=== PATIENT | female | born 1980 | race Caucasian/White ===

== ENCOUNTER 2017-08-11 14:30 | Outpatient (CLI) | payer OTHER, SELFPAY ==
[2017-08-11 15:07] VITALS: BMI 30.4
[2017-08-11 15:32] LABS: ROM Internal Control Test YES-OK TO RESULT pt. (Internal QC)
[2017-08-11 15:33] LABS: ROM Patient Test Negative (Negative)
--- NOTE | 2017-08-12 17:22 | OB.TRI.NOTE ---
History of Present Illness Reason For Visit: R/O SROM History of Present Illness: Presented to L&D because she had leakage of fluid when bending over at home. Nothing in underwear or that continued. Advised to come in for evaluation. Denies any vaginal bleeding or contractions. Good movement. Home Medications Medication Instructions Recorded Vits [Prenatabs FA ] 1 tab PO DAILY 07/17/13 Allergies No Known Allergies Allergy (Verified 08/11/17 15:13) NST - FHR Rate Baby A Baseline: 140 Variability:: Moderate Accelerations:: 15 x 15 Decelerations:: None NST Reactive:: Yes FHR Category:: Category I Uterine Activity:: Irritability Impression/Plan A: Membranes intact P: ROM plus negative D/C home.
== END 2017-08-11 15:50 | disposition home or self-care (01) ==
LOC: WPOUT 14:43 → WP 14:44
PROVIDERS: Visit Provider Obstetrics & Gynecology
DX: Z34.90 Encounter for supervision of normal pregnancy, unspecified, unspecified trimester (principal); Z3A.00 Weeks of gestation of pregnancy not specified
CPT/HCPCS: 59025; 59050; 84112; 99218; G0378

== ENCOUNTER 2017-09-01 17:00 | Inpatient (IN) | payer BC, SELFPAY ==
[2017-09-01 17:28] VITALS: BMI 30.7
[2017-09-01] MEDS: Lactated Ringers 1,000 ML 50 ML IV ×2 (17:30→19:05)
[2017-09-01 17:48] LABS: Hematocrit 36.6 % (37-47); Hemoglobin 12.5 g/dl (12.0-15.0); Mean Corp Hgb Conc 34.2 g/gl (32-36); Mean Corpuscular Hgb 31.5 pg (27.0-32.0); Mean Corpuscular Volume 92.2 fL (81-99); Mean Platelet Vol. 9.9 fl (6.2-12.0); Platelet Count 237 K/mm3 (150-450); RBC Distribution Width CV 12.6 % (11.6-14.6); RBC Distribution Width SD 42.6 fl (35.1-43.9); Red Blood Count 3.97 M/mm3 (4.2-5.4); White Blood Count 6.1 K/mm3 (4.4-11.0)
[2017-09-01 17:51] LABS: Scan Indicated on CBC? Y/N NO
--- NOTE | 2017-09-01 19:04 | PCM.HP.OB ---
History Date of Admission: 09/01/17 Final PRUDENCE: 09/11/17 Final PRUDENCE Source: US <20 weeks Gestational age: 38 Weeks and 4 Days History of this : 37-year-old 3 para 2 female who presents at 38-2/7 weeks gestation with EDC of 09/11/2017 by last menstrual period confirmed by first trimester ultrasound presents in labor. She had spontaneous rupture of membranes proximally 3 AM this morning. Continued to have small amounts of clear fluid throughout the day. She has had some mild contractions. They have began to get more intense when she arrived here. She denies gross vaginal bleeding and she has had good movement. Regnancy has been uncomplicated to date other than advanced maternal age. Pertinent Past Medical History: Vulvar dysplasia History of anxiety Street abnormal Pap smear History of hemorrhage Past surgical history: Tonsillectomy Laser of vulvar dysplasia Allergies No Known Allergies Allergy (Verified 08/11/17 15:13) Current Medications Acetaminophen (Tylenol) 325 - 650 mg PO Q4H PRN PRN PRN Reason: PAIN OR FEVER >100.4F Al Hydroxide/Mg Hydroxide (Mylanta Ii) 15 - 30 ml PO Q4H PRN PRN PRN Reason: INDIGESTION Citric Acid/Sodium Citrate (Bicitra) 30 ml PO UD PRN Lactated Ringer's () 1,000 mls @ 50 mls/hr IV .Q20H AIDAN Nalbuphine HCl (Nubain) 5 - 10 mg IV Q3H PRN PRN PRN Reason: PAIN (4-10/10) Ondansetron HCl (Zofran) 4 mg IV Q8H PRN PRN PRN Reason: NAUSEA Promethazine HCl (Phenergan (Ll)) 6.25 - 12.5 mg IV Q4H PRN PRN; Protocol PRN Reason: IF NAUSEA PERSISTS Sodium Chloride () 5 - 15 ml IV UD AIDAN Smoking Status: Former smoker Alcohol: None Drug Use: none Number of Fetus(es): 1 Review of Systems Constitutional: Denies: Anorexia, Chills, Fever HEENT: Reports: Ear Pain, Eye Pain Cardiovascular: Denies: Chest Pain Respiratory: Reports: Cough. Denies: Shortness of Breath Gastrointestinal: Denies: Constipation Genitourinary: Denies: Dysuria Skin: Denies: Rash Physical Exam General: Alert, Cooperative, No apparent distress Cardiovascular: Regular rate Lungs: Normal air movement Abdomen: Soft, Non Tender, Non-Distended, Gravid, Appropriate for Gestational Age Estimated gestational size: Appropriate for gestational size Presentation: Cephalic Cervix Dilation (cm): 4 Station: -2 Effacement (%): 70 Assessment/Plan 37-year-old 3 para 2 female at term with spontaneous rupture of membranes Estimated weight is less than 4500 g pelvis is clinically adequate vaginal delivery Epidural if desires Group B strep is negative
[2017-09-01] MEDS: Oxytocin 30 units/NS 500 ml 30 UNITS/500 ML IV.SOLN IV (20:00)
[2017-09-01] MEDS: Oxytocin 30 units/NS 500 ml 30 UNITS/500 ML IV.SOLN 334 UNITS IV (21:20)
--- NOTE | 2017-09-01 21:23 | PCM.OB.VAG ---
Vaginal Delivery Maternal Presentation: Active Labor Amniotic Membrane Rupture Type: Spontaneous at home Amniotic Fluid Description: Clear Final PRUDENCE: 09/11/17 Final PRUDENCE Source: US <20 weeks Gestational age: 38 Weeks and 4 Days Date of Procedure: 09/01/17 Pre-Operative Diagnosis: Spontaneous labor Post-Operative Diagnosis: Labor Surgery/ Procedure Performed: Spontaneous Vaginal Delivery Type of Anesthesia: None Description of Procedure: A vigorous [female] was delivered [SUSANNAH] over intact perineum. The remainder the infant was delivered with maternal pushing and gentle traction only in less than 15 seconds. The Pitocin infusion was initiated for active management of the third stage. The cord was clamped and cut [after 1 minute]. The was attended to by the waiting nursing staff. The placenta was delivered spontaneously and intact. The cervix and vagina were intact. Sponge and needle counts were correct. A vaginal sweep was completed by me. Presentation: SUSANNAH Placental Delivery Description: Spontaneous Placenta Disposition: [facility] Cord Vessel Description: 3 Vessels Cord Entanglement: None Drain: Cu[place] to straight drain - Moved immediately before delivery Estimated Blood Loss: 300 cc Infant A gender: Female (1 minute): 8 (5 minute): 9 Episiotomy Description: None Laceration: None Medications given after delivery: IV Pitocin Complications: None
[2017-09-01] MEDS: Oxytocin 30 units/NS 500 ml 30 UNITS/500 ML IV.SOLN 167 UNITS IV (21:50)
[2017-09-01 23:45] VITALS: BP 111/64; PULSE 72; RESP 18; TEMP 37.3; O2SAT 98
[2017-09-02] MEDS: Naproxen 250 MG Tablet PO ×3 (00:55→16:51)
[2017-09-02 04:17] VITALS: BP 92/55; PULSE 62; RESP 18; TEMP 36; O2SAT 96
[2017-09-02 09:00] VITALS: BP 107/57; PULSE 65; RESP 18; TEMP 36.6
[2017-09-02] MEDS: Senna/Docusate Sodium 1 Tablet PO (09:00)
--- NOTE | 2017-09-02 10:41 | PCM.PN.OB ---
Subjective: pain well controlled, average lochia - Physical Exam General: Alert, Cooperative, No apparent distress Vital Signs Temp Pulse Resp BP Pulse Ox 97.9 F 65 18 107/57 L 96 09/02/17 09:00 09/02/17 09:00 09/02/17 09:00 09/02/17 09:00 09/02/17 04:17 Oxygen Delivery Method Room Air Weight: 88.961 kg Body Mass Index (BMI) 30.7 Intake and Output for Last 24 Hours 08/31/17 09/01/17 09/02/17 23:59 23:59 23:59 Output Total 100 / 100 800 / 800 Balance -100 / -100 -800 / -800 Laboratory Tests Past 24 Hrs 09/01/17 09/01/17 17:30 17:30 WBC 6.1 RBC 3.97 L Hgb 12.5 Hct 36.6 L MCV 92.2 MCH 31.5 MCHC 34.2 RDW 12.6 RDW Differential 42.6 Plt Count 237 MPV 9.9 Blood Type O POSITIVE Antibody Screen NEGATIVE Assessment/Plan PPD#1 doing well routine care
--- NOTE | 2017-09-02 10:45 | DCINST_ITS ---
Discharge Diet: No Restrictions Discharge Activity: Return to Normal Activity, May not drive while taking narcotic pain medications., May Shower May resume sexual activity in: 4-6 weeks Additional Activity Instructions:: Nothing in the vagina for 4-6 weeks. You may return to work/school in 6 weeks. Call your doctor if your incision/area has: Continuous Slow Oozing, Sudden Increased Bleeding, Increased Pain/ Swelling, Increased Redness, Foul Smelling Discharge Additional Instructions: If you experience any of the following, contact your healthcare provider. * Bleeding that soaks a pad every hour for 2 hours * Fever 100.4 or higher * Unrelieved incision or abdominal pain * Swelling, redness, discharge or bleeding from your incision or episiotomy site * Your incision begins to separate * Problems urinating (including inability to urinate or burning while urinating) . * Visual changes * Severe headache * Flu-like symptoms * Pain or redness in one of both of your breasts * Pain, warmth, tenderness or swelling in your legs, especially the calf area * Frequent nausea and vomiting * Symptoms of depression or anxiety If you experience any of the following, call 911 or go to the nearest Emergency Room. * Chest pain * Problems breathing * Seizure activity * Partial or complete paralysis of a body part, slurred speech, weakness or drooping of the face, or a sudden inability to walk or hold your balance Allergies/Adverse Reactions: Allergies No Known Allergies Allergy (Verified 08/11/17 15:13) Medications to take at Discharge Vits [Prenatabs FA ] 1 tab PO DAILY 07/17/13 Acetaminophen [Tylenol] 650 mg PO PRN PRN 09/01/17 Amoxicillin 875 mg PO BID 09/01/17 Amoxicillin 875 mg PO BID tablet 09/02/17 Ibuprofen [Motrin] 600 mg PO Q6H PRN #60 tab 09/02/17 The following prescriptions were given: Ibuprofen [Motrin] 600 mg PO Q6H PRN #60 tab PRN Reason: Pain Please Follow Up With: Donna Loomis MD - [phone] When: Call to make an appointment with your doctor's office in 6 weeks or as needed
[2017-09-02 12:00] VITALS: BP 111/61; PULSE 70; RESP 18; TEMP 36.1
[2017-09-02 16:53] VITALS: BP 103/56; PULSE 56; RESP 18; TEMP 36.2
[2017-09-02 20:05] VITALS: BP 102/65; PULSE 57; RESP 16; TEMP 36
[2017-09-03 02:20] VITALS: BP 106/65; PULSE 57; RESP 16; TEMP 36
[2017-09-03] MEDS: Naproxen 250 MG Tablet PO ×2 (02:21→10:35)
[2017-09-03 08:28] VITALS: BP 120/84; PULSE 86; RESP 16; TEMP 36.2
--- NOTE | 2017-09-03 09:18 | PCM.PN.OB ---
Subjective: pain well controlled, average lochia. no N/v - Physical Exam General: Alert, Cooperative, No apparent distress Vital Signs Temp Pulse Resp BP Pulse Ox 97.2 F L 86 16 120/84 H 96 09/03/17 08:28 09/03/17 08:28 09/03/17 08:28 09/03/17 08:28 09/02/17 04:17 Oxygen Delivery Method Room Air Weight: 88.961 kg Body Mass Index (BMI) 30.7 Intake and Output for Last 24 Hours 09/01/17 09/02/17 09/03/17 23:59 23:59 23:59 Output Total 100 / 100 800 / 800 Balance -100 / -100 -800 / -800 Assessment/Plan PPD#2 ready for d/c infant
== END 2017-09-03 12:20 | disposition home or self-care (01) | DRG 775 ==
PROVIDERS: Admitting Provider Obstetrics & Gynecology; Visit Provider Obstetrics & Gynecology
DX: O80 Encounter for full-term uncomplicated delivery (principal); Z87.891 Personal history of nicotine dependence; Z79.899 Other long term (current) drug therapy; Z3A.38 38 weeks gestation of pregnancy; Z37.0 Single live birth
CPT/HCPCS: 59025; 59050; 85027; 86850; 86900; 99218; J7120; G0378

== ENCOUNTER 2018-10-26 13:04 | Emergency (ER) | payer BC, SELFPAY ==
[2018-10-26 13:06] VITALS: BP 123/69; PULSE 95; RESP 15; TEMP 37.6; O2SAT 97; BMI 28.0
--- NOTE | 2018-10-26 13:20 | RAD_ITS ---
STUDY: X-RAY CHEST REASON FOR EXAM: Female, 38 years old. Fever and joint pain for one week TECHNIQUE: PA and lateral views of the chest. COMPARISON: None. FINDINGS: The lungs are clear and expanded. There is no demonstrated pleural abnormality. Normal size heart. Normal mediastinum and aneta. Normal visualized pulmonary arteries. Normal visualized aortic arch and descending thoracic aorta. Normal visualized thoracic spine. Normal visualized ribs, clavicles, and shoulders. There is no demonstrated abnormality of the visualized soft tissue structures of the upper abdomen. RAD/Chest PA and Lateral IMPRESSION: Normal x-ray examination of the chest. Electronically Signed: Chas Leavitt MD at 14:37 EDT , Service support ,
[2018-10-26 14:11] LABS: Absolute Lymphocyte Count 1.89 X10^3/ul (0.83-4.51); Absolute Neutrophil Count 5.4 X10^3/uL (2.0-7.7); Basophil# 0.05 X10^3/uL; Basophil% 0.6 % (0-1); Eosinophil# 0.42 X10^3/uL; Eosinophils% 5.2 % (0-5); Hematocrit 38.6 % (37-47); Hemoglobin 13.1 g/dl (12.0-15.0); Lymphocyte # 1.89 X10^3/ul (4.0); Lymphocyte % 23.5 % (19-41); Mean Corp Hgb Conc 33.9 g/gl (32-36); Mean Corpuscular Hgb 30.6 pg (27.0-32.0); Mean Corpuscular Volume 90.2 fL (81-99); Mean Platelet Vol. 9.5 fl (6.2-12.0); Monocyte# 0.28 X10^3/uL; Monocyte% 3.5 % (0-10); Neutrophil # 5.39 X10^3/uL (2.7-7.7); Neutrophil % 67.1 % (47-70); Platelet Count 249 K/mm3 (150-450); RBC Distribution Width CV 12.8 % (11.6-14.6); RBC Distribution Width SD 41.8 fl (35.1-43.9); Red Blood Count 4.28 M/mm3 (4.2-5.4)
[2018-10-26 14:12] LABS: POSITIVE COUNT NO; POSITIVE DIFFERENTIAL NO; POSITIVE MORPHOLOGY NO
[2018-10-26 14:16] LABS: Erythrocyte Sedimentation Rate 24 mm/hr (0-20)
[2018-10-26 14:27] LABS: ALB/GLOB Ratio 0.9 RATIO (0.9-2.4); AST(SGOT) 14 U/L (15-37); Alanine Aminotransfer ALT/SGPT 22 U/L (13-56); Albumin, Serum 3.7 g/dL (3.2-5.0); Alkaline Phosphatase 66 U/L (45-117); Anion Gap 6 (5-15); BUN 10 mg/dL (7-18); BUN/Creat Ratio 16.3 RATIO (10-20); Calcium,Total 8.8 mg/dL (8.5-10.1); Chloride 108 mmol/L (98-107); Creatinine, Serum 0.61 mg/dL (0.55-1.02); EST Glomerular Filtration Rate 117 mL/min (>60); Est Glom Filt Rate - Afr Amer 142 mL/min (>60); Estimated Creatinine Clearance 123.99 ml/min; Globulin 4.1 g/dL (2.2-4.2); Glucose 88 mg/dL (74-106); Protein, Total 7.8 g/dL (6.4-8.2); Sodium Level 138 mmol/L (136-145)
[2018-10-26 16:59] LABS: Color, Urine Yellow (Yellow); Glucose, Dipstick Normal (Normal); Leukocyte Esterase-Dipstick Negative /ul (Negative); Nitrite-Dipstick Negative (Negative); Occult Blood-Urine 25 /ul (Negative); Protein-Dipstick Negative (Negative); Urine Bilirubin Dipstick Negative (Negative); Urine Clarity Clear (Clear); Urine Urobilinogen Normal (Normal)
[2018-10-26 17:03] LABS: Ketone-Dipstick 150 mg/dl (Negative)
[2018-10-26 17:05] LABS: Bacteria RARE /hpf (None Seen); Mucous, Urine 1+ /hpf (<or=2+); Red Blood Cells-Urine 0-5 SEEN /hpf (0-5); Squamous Epithelial Cells - UA 0-5 SEEN /hpf (5-10); White Blood Cells 0-5 SEEN /hpf (0-5)
--- NOTE | 2018-10-26 18:01 | ED.VIS.GEN ---
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 Denies: Chills, Subjective, Sweats Eyes: Denies: Visual changes - bilaterally, Blurred Vision - bilaterally, Diplopia ENT: Denies: Rhinorrhea, Sore throat Cardiovascular: Denies: Chest pain, Palpitations Respiratory: Denies: Dyspnea, Cough, Dyspnea on exertion Gastrointestinal: Denies: Abdominal pain, Nausea, Vomiting, Diarrhea, Melena, Hematochezia Genitourinary: Denies: Dysuria, Hematuria, Frequency Musculoskeletal: Reports: Myalgias, Arthralgias - She reports joint swelling multiple MCP joints bilaterally. Denies: Neck pain, Back pain, Swelling, Extremity Pain Skin: Denies: Rash, Wounds Neurological: Denies: Headache, Weakness, Numbness Endocrine: Denies: Polyuria, Polydipsia Hematologic: Denies: Easy bruising, Easy bleeding Allergy: Denies: Uticaria, Swelling of the mouth Physical Exam General: Well nourished, Well developed, No Acute Distress Head: Normocephalic, Atraumatic Eyes: Perrl, EOMI ENT: Moist mucous membranes, No rhinorrhea Neck: Supple, Nontender Cardiovascular: Regular rate, Regular rhythm, No murmurs Respiratory: No distress, CTA bilaterally, Chest nontender Abdomen: Soft, Nontender, Nondistended, Normal bowel sounds Back: Nontender, Normal Inspection Extremities: Nontender, No edema, - - Tenderness of multiple MCP joints bilaterally with bogginess. Skin: Normal color, No rash - Patient has blanching erythematous rash noted predominantly extremities, Rash Neurological: Alert, Oriented x3, Cranial nerves II-XII grossly intact, Normal Strength, Normal Sensation Psychological: Normal affect, Normal Mood Diagnostic/Tx/Re-eval Impressions Chest X-Ray 10/26/18 13:20 IMPRESSION: Normal x-ray examination of the chest. Electronically Signed: Chas Leavitt MD at 14:37 EDT , Service support , 10/26/18 13:20 Chest PA and Lateral [RAD] Stat Laboratory Results 10/26/18 10/26/18 10/26/18 13:50 13:50 16:45 WBC 8.0 RBC 4.28 Hgb 13.1 Hct 38.6 MCV 90.2 MCH 30.6 MCHC 33.9 RDW 12.8 RDW Differential 41.8 Plt Count 249 MPV 9.5 Immature Gran % (Auto) 0.100 Neut % (Auto) 67.1 Lymph % (Auto) 23.5 [place] % (Auto) 3.5 Eos % (Auto) 5.2 H Baso % (Auto) 0.6 Absolute Neuts (auto) 5.4 Absolute Lymphs (auto) 1.89 Total Counted Not Reportable ESR 24 H Sodium 138 Potassium 4.0 Chloride 108 H Carbon Dioxide 24.0 Anion Gap 6 BUN 10 Creatinine 0.61 Estim Creat Clear Calc 123.99 Est GFR (MDRD) Af Amer 142 Est GFR (MDRD) Non-Af 117 BUN/Creatinine Ratio 16.3 Glucose 88 Calcium 8.8 Total Bilirubin 0.40 AST 14 L ALT 22 Alkaline Phosphatase 66 C-React Prot Ext Range 70.90 H Total Protein 7.8 Albumin 3.7 Globulin 4.1 Albumin/Globulin Ratio 0.9 Urine Color Yellow Urine Clarity Clear Urine pH 5.0 Ur Specific [place] 1.020 Urine Protein Negative Urine Glucose (UA) Normal Urine Ketones 150 H Urine Occult Blood 25 H Urine Nitrite Negative Urine Bilirubin Negative Urine Urobilinogen Normal Ur Leukocyte Esterase Negative Urine RBC 0-5 SEEN Urine WBC 0-5 SEEN Ur Squamous Epith Cells 0-5 SEEN Urine Bacteria RARE Urine Mucus 1+ - Medical Decision Making With low-grade myalgias, arthralgias, joint swelling and rash concern for rheumatologic disorder. Baseline blood work was ordered. ESR and CRP are elevated. Discussed case with her unit aide Dr. Jose M Johnson. She asked for patient to call office Sunday and will put in referral for cool roofing installer ED Disposition - Plan for ED Patient: Disposition: Home or Assisted Living Diagnosis: Polyarthritis of hand, Rash and nonspecific skin eruption, Fever, unknown origin Instructions: ED Fever Unconf Cause Referrals: Augusto Luna MD [Primary Care Provider] - Additional Instructions: Call Dr. Castle's office on Sunday and revenue cycle administrator will make referral to cool roofing installer for you
[2018-10-26 18:23] VITALS: BP 116/63; PULSE 78; RESP 16
--- NOTE | 2018-10-26 18:23 | ED.RN ---
IV DC'ED, CATHETER INTACT, SMALL GAUZE DRESSING PLACED. DISCHARGE INSTRUCTIONS GIVEN TO AND REVIEWED WITH PATIENT, PATIENT DENIES QUESTIONS OR CONCERNS AND VOICES UNDERSTANDING OF DISCHARGE INSTRUCTIONS. PT AMBULATES OUT OF ROOM WITHOUT DIFFICULTY.
== END 2018-10-26 18:24 | disposition home or self-care (01) ==
PROVIDERS: Emergency Provider Emergency Medicine; Family Provider Family Medicine; PCP Family Medicine
DX: M19.049 Primary osteoarthritis, unspecified hand (principal); R21 Rash and other nonspecific skin eruption; R50.9 Fever, unspecified
CPT/HCPCS: 71046; 80053; 81001; 85025; 85652; 86140; 87040; 99284

== ENCOUNTER 2020-07-01 07:52 | Day surgery (SDC) | payer OTHER, SELFPAY ==
--- NOTE | 2020-06-25 16:37 | PCM.HP.BLA ---
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 HPI: The patient is a 40 year old female presenting for pre-operative visit. She is scheduled for wide local excision of vulvar lesions , for VIN2-3 on 07/01/20. Procedure discussed along with risks, benefits and complications. Other alternatives discussed for management. Consent form signed? Yes. ? ? PAST MEDICAL HISTORY PAST MEDICAL HISTORY Diagnosis Date ? Abnormal glandular Papanicolaou smear of cervix ? ? Abn. Pap smear (cervix) ? Anxiety ? ? hemorrhage ? ? ? PAST SURGICAL HISTORY PAST SURGICAL HISTORY Procedure Laterality Date ? COLPOSCOPY (VAGINOSCOPY) ? ? ? Colposcopy ? PAST SURGICAL HISTORY OF ? 02/17/2016 ? Removal of tissues ? PRK Left 05-05-2016 ? REMOVE TONSILS/ADENOIDS,12+ Y/O ? CURRENT MEDICATIONS Current Outpatient Medications Medication Sig Dispense Refill ? imiquimod (ALDARA) 5 % cream Apply 1 Packet to affected area three times a week. 12 Each 4 ? Drospirenone-Ethinyl Estradiol (ISIDORO, 28,) 3-0.03 mg per tablet Take 1 tablet by mouth once daily. 3 Package 3 ? Gvphlngn-Dv-Eor-Fe-FA ( VITAMIN) tab Take 1 tablet by mouth. ? ? ? lidocaine 4 % gel Apply to affected area three times daily as needed for up to 7 days. 30 g 0 ? ibuprofen (MOTRIN) 600 mg tablet Take 1 tablet by mouth every 6 hours as needed. 30 tablet 1 ? oxyCODONE-acetaminophen (PERCOCET) 5-325 mg tablet Take 1 tablet by mouth every 6 hours as needed for Pain for up to 3 days. FOR PAIN. 5 tablet 0 ? No current facility-administered medications for this visit. ? ? ALLERGIES: Lo-Ovral (21) [Norgestrel-Ethinyl Estradiol] ? PERSONAL HISTORY: SOCIAL HISTORY Social History ? Tobacco Use ? Smoking status: Former Smoker ? ? Years: 5.00 ? ? Quit date: 07/16/2002 ? ? Years since quittin.9 ? Smokeless tobacco: Never Used Substance Use Topics ? Alcohol use: No ? Drug use: No ? FAMILY HISTORY: FAMILY HISTORY FAMILY HISTORY Problem Relation Age of Onset ? Cancer Father ? ? lung ? Cancer Paternal Grandmother ? ? oral cancer ? other (Dementia) Paternal Grandmother ? ? Diabetes Paternal Grandfather ? ? Heart Paternal Grandfather ? ? ? REVIEW OF SYMPTOMS: negative except as noted above PHYSICAL EXAMINATION: ? VITALS: Blood pressure 112/70, weight 172 lb (78 kg), last menstrual period 06/21/2020. ? GENERAL: The patient is well nourished, well hydrated in no acute distress. , The patient is oriented to time, place, and person. NECK: full range of motion ? 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 PLAN: Wide local excision of vulvar lesions- ? Discussed acetic acid use during case to help visualize lesions. Will send each lesion individually and create diagram so we ensure we know which lesions are VIN2-3. Consider imiqumoid after if indicated. Reviewed margins with patient. ? Pt has been counseled on risks/benefits and alternatives of surgery including but not limited to anesthesia, bleeding, infection. Pt wishes to proceed with surgery at this time. ? Post op meds given ? ? I have reviewed and updated past medical and surgical history, medications and allergies Gely Castle MD
[2020-07-01] VITALS (8 sets, daily range): BP systolic 98–116; BP diastolic 51–82; PULSE 63–90; RESP 16–18; TEMP 36.2–36.9; O2SAT 96–100; BMI 26.9
--- NOTE | 2020-07-01 | IMM_PTH ---
PATIENT: RONA MONTES [place] [facility] [place][id number] AGE/SX: 40/F ROOM: RE07/01/[address]: Dr. Gely Gross, MDDOB: 1980 BED: DIS: 07/01/2020 SPEC #: [id number] RECD: 07/05/20 12:51 STATUS: BORIS REQ #: [id number] THOR: 07/01/20 00:[address]: Gely Gross DEPT: IMMUNOHISTOCHEMISTRY RECD BY: Viktoria Chino ENTERED: 07/05/20 12:53 SP TYPE: IMMUNO OTHR DR: Dr. Augusto Luna MD Tissues: E - Skin of vulva F - Skin of vulva H - Skin of vulva Procedures: p16 (initial) KI-67 (add) PHYSICIAN & INSTITUTION [place] [id number] SPECIMEN INFORMATION: Tissue Source: A - Vulvar lesion #1, B - Vulvar lesion #2, C - Vulvar lesion #3, D - Vulvar lesion #5, E - Vulvar lesion #6, F - Vulvar lesion #7, G - Vulvar lesion #9, H - Vulvar lesion #10, I - Vulvar lesion #11, J - Vulvar lesion #12 Clinical Info: Vulvar lesions Specimen Number: [id number] A-[id number] CPT code: 45311 x10, 02033 x10 METHODOLOGY: Deparaffinized sections of prefer/formalin-fixed tissue or PAP/DQ stained slides are incubated with monoclonal/polyclonal antibodies/oligonucleotide probes. Localization is made via biotin free immunoperoxidase method. Appropriate controls are performed and reacted as expected. Results on target cell population are indicated in the following table: RESULTS: ANTIBODY / CLONE RESULT Block A P16 (E6H4) negative Ki-67 (30-9) negative Block B P16 (E6H4) negative Ki-67 (30-9) positive, low Block C P16 (E6H4) negative Ki-67 (30-9) positive, low Block D P16 (E6H4) negative Ki-67 (30-9) negative, low Block E P16 (E6H4) positive, block staining Ki-67 (30-9) positive, high Block F P16 (E6H4) positive, focal and patchy Ki-67 (30-9) positive, low Block G P16 (E6H4) negative Ki-67 (30-9) negative Block H P16 (E6H4) positive, focal block staining Ki-67 (30-9) positive, moderate Block I P16 (E6H4) negative Ki-67 (30-9) negative Block J P16 (E6H4) negative Ki-67 (30-9) negative These tests were developed and their performance characteristics determined by [facility]. They may not have been cleared or approved by the U.S. Food and Drug Administration. The FDA has determined that such clearance or approval is not necessary. The above immunohistochemical/dualISH markers are ordered and reviewed by the Pathologist. INTERPRETATION: A. Vulvar lesion #1, biopsy: Negative for dysplasia. B. Vulvar lesion #2, biopsy: Negative for dysplasia. C. Vulvar lesion #3, biopsy: Negative for dysplasia. D. Vulvar lesion #5, biopsy: Negative for dysplasia. E. 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 F. Vulvar lesion #7, biopsy: Focal mild Squamous dysplasia (ANA I). G. Vulvar lesion #9, biopsy: Negative for dysplasia. H. Vulvar lesion #10, biopsy: Focal moderate Squamous dysplasia (ANA II). I. Vulvar lesion #11, biopsy: Negative for dysplasia. J. Vulvar lesion #12, biopsy: Negative for dysplasia. SJ:chema 07/07/20
[2020-07-01 08:23] LABS: Internal QC Validated? YES +Cl - CLEAR BKGD
[2020-07-01 08:27] LABS: Pregnancy, Urine Negative Negative
[2020-07-01 08:27] LABS: Hematocrit 38.5 % (37-47); Hemoglobin 13.1 g/dL (12.0-15.0); Mean Corpuscular Hgb 31.4 pg (27.0-32.0); Mean Corpuscular Volume 92.3 fL (81-99); Platelet Count 321 K/mm3 (150-450); RBC Distribution Width CV 12.5 % (11.6-14.6); RBC Distribution Width SD 42.4 fl (35.1-43.9); Red Blood Count 4.17 M/mm3 (4.2-5.4); White Blood Count 5.6 K/mm3 (4.4-11.0)
[2020-07-01] MEDS: 0.9% Normal Saline 1,000 ML 150 ML IV (08:34)
--- NOTE | 2020-07-01 09:30 | VUL_PTH ---
PATIENT: RONA MONTES [place] [facility] [place] U[place][id number] AGE/SX: 40/F ROOM: RE07/01/[address]: Dr. Gely Gross, MDDOB: 1980 BED: DIS: 07/01/2020 SPEC #: [id number] RECD: 07/01/20 13:34 STATUS: BORIS ORIANA #: [id number] THOR: 07/01/20 09:[address]: Gely Gross DEPT: SURGICAL PATHOLOGY RECD BY: Ashley Rothman ENTERED: 07/02/20 08:16 SP TYPE: VULVA BX OTHR DR: Dr. Augusto Luna MD Tissues: A - Vulva, NOS B - Vulva, NOS C - Vulva, NOS D - Vulva, NOS E - Vulva, NOS F - Vulva, NOS G - Vulva, NOS H - Vulva, NOS I - Vulva, NOS J - Vulva, NOS Procedures: Surgery Specimen Level IV HEADER OPERATION: Wide local excision, vulvar lesion PRE-OP DIAGNOSIS: Vulvar lesions TISSUE SUBMITTED: A - Vulvar lesion #1, B - Vulvar lesion #2, C - Vulvar lesion #3, D - Vulvar lesion #5, E - Vulvar lesion #6, F - Vulvar lesion #7, G - Vulvar lesion #9, H - Vulvar lesion #10, I - Vulvar lesion #11, J - Vulvar lesion #12 MICROSCOPIC DIAGNOSIS A. Vulvar lesion #1, biopsy: Consistent with squamous papilloma. Negative for dysplasia. See comment. B. Vulvar lesion #2, biopsy: Consistent with squamous papilloma. Negative for dysplasia. See comment. C. Vulvar lesion #3, biopsy: Consistent with squamous papilloma. Negative for dysplasia. See comment. D. Vulvar lesion #5, biopsy: A fragment of squamous mucosa with focal hyperkeratosis. Negative for dysplasia. See comment. E. 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 Resection margins are free of dysplastic changes. See comment. F. Vulvar lesion #7, biopsy: Focal mild squamous dysplasia (ANA I). Focal hyperkeratosis. Resection margins are free of dysplastic changes. See comment. G. Vulvar lesion #9, biopsy: Squamous papilloma with focal hyperkeratosis. Negative for dysplasia. See comment. H. Vulvar lesion #10, biopsy: Focal moderate squamous dysplasia (ANA II). Acanthosis and hyperkeratosis. Resection margins are free of dysplastic changes. See comment. I. Vulvar lesion #11, biopsy: Focal acanthosis and hyperkeratosis. Negative for dysplasia. See comment. J. Vulvar lesion #12, biopsy: Focal acanthosis. Negative for dysplasia. See comment. NEHEMIAS:chema 07/07/20 COMMENT A-C & G. The lesion may represent condyloma. A to J. Immunohistochemistry ([id number]) for surrogate HPV marker (p16) supports the above diagnosis. MICROSCOPIC DESCRIPTION Slides are reviewed. GROSS DESCRIPTION A - Received in fixative is one container labeled with the patient's name and designated vulvar lesion #1. The specimen consists of one irregular fragment of light currie soft tissue that measures 0.5 x 0.5 x 0.1 cm. The specimen is totally submitted in one cassette. B - Received in fixative is one container labeled with the patient's name and designated vulvar lesion #2. The specimen consists of one irregular fragment of light currie soft tissue that measures 0.6 x 0.5 x 0.21 cm. The specimen is inked, bisected and totally submitted in one cassette. C - Received in fixative is one container labeled with the patient's name and designated vulvar lesion #3. The specimen consists of one irregular fragment of light currie soft tissue that measures 0.8 x 0.5 x 0.2 cm. The specimen is inked, bisected and totally submitted in one cassette. D - Received in fixative is one container labeled with the patient's name and designated vulvar lesion #5. The specimen consists of one irregular fragment of light currie soft tissue that measures 0.6 x 0.5 x 0.2 cm. The specimen is inked, bisected and totally submitted in one cassette. E - Received in fixative is one container labeled with the patient's name and designated vulvar lesion #6. The specimen consists of one irregular fragment of light currie soft tissue that measures 3.2 x 1.6 x 0.2 cm. The specimen is inked, serially sectioned and totally submitted in one cassette. F - Received in fixative is one container labeled with the patient's name and designated vulvar lesion #7. The specimen consists of two irregular fragments of light currie soft tissue that in aggregate measure 1.5 x 0.6 x 0.2 cm. The specimen is inked, sectioned and totally submitted in one cassette. G - Received in fixative is one container labeled with the patient's name and designated vulvar lesion #9. The specimen consists of one irregular fragment of light currie soft tissue that measures 2.5 x 1.6 x 0.2 cm. The specimen is inked, serially sectioned and totally submitted in one cassette. H - Received in fixative is one container labeled with the patient's name and designated vulvar lesion #10. The specimen consists of one irregular fragment of light currie soft tissue that measures 0.5 x 0.2 x 0.1 cm. The specimen is inked, serially sectioned and totally submitted in one cassette. I - Received in fixative is one container labeled with the patient's name and designated vulvar lesion #11. The specimen consists of one irregular fragment of light currie soft tissue that measures 2 x 0.2 x 0.1 cm. The specimen is bisected and totally submitted in one cassette. J - Received in fixative is one container labeled with the patient's name and designated vulvar lesion #12. The specimen consists of one irregular fragment of light currie soft tissue that measures 1 x 0.3 x 0.1 cm. The specimen is inked, bisected and totally submitted in one cassette. / AM:chema 07/02/20 TC:5 CPT: 57166 x10
[2020-07-01] MEDS: ACETIC ACID 1,000 ML IRRIG.SOLN 1000 ML IR (10:54)
[2020-07-01] MEDS: Lidocaine 1%/Epi 1:200 (30ml) 30 ML AMPUL (10:54)
--- NOTE | 2020-07-01 11:36 | PCM.OPRPT ---
Report of Operation Date of Procedure: 07/01/20 Pre-Operative Diagnosis: ANA 2-3 Post-Operative Diagnosis: same Surgery/Procedure Performed:: Wide local Exicison of mulitple vulvar lesions Description of Surgical Findings:: Multiple Hyperpigmented small lesion on MONS, perineum, labia majora and in previous resection sites Type of Anesthesia:: Local, MAC Special Medications: 1% Lidocaine with EPINEPHRINE Specimen's removed: Mulitple Vulvar lesions- (10 total specimens) Drains: none Estimated Blood Loss (mL): 15 Fluids Replaced: 1400 Description of Procedure: She was taken to the operating room she was even anesthesia and then she was prepped and draped in the normal sterile fashion. At this time acetic acid 0.25% wash was used on the entire vulva to help highlight any abnormal lesions. At this time a diagram was drawn and lesions were labeled. 10 total specimens were collected. Once the lesions were identified the 1% lidocaine with epinephrine was injected. Scalpel was used to create an approximately 1 cm margin around the lesions. The area was then removed in its entirety superficial. Please see pathology for specific locations. There were approximately5 lesions on mons, 1 large excision on right vulva, 1 excision on perineum, one adjacent to anus on left, 1 lesions at previous excision site on left labia majora, and one excision on right upper labia majora. the areas were then sutured in a subcutaneous fashion or interrupted for cosmetic and hemostatic purpose. Dermabond glue was then placed over each site. pt tolerated well. Vaginal sweep negative. Grafts/Implants Used: none - Complications none - Admit VTE Documentation VTE Present on Admission: Yes VTE Mechan Device Prophylaxis: SCD's VTE Pharm Prophylaxis ordered?: No
--- NOTE | 2020-07-01 11:45 | PCM.DC ---
You will use the following diet at home:: No restrictions Your food should be the consistency of: Regular Discharge Activity: May not drive while taking narcotic pain medications., May Shower May shower in (days): 1 May resume sexual activity in: 2 weeks Lifting Restrictions: 20 Call your doctor if your incision/area has: Continuous Slow Oozing, Sudden Increased Bleeding, Increased Pain/ Swelling, Increased Redness, Foul Smelling Discharge, Swelling at the incision site Call your doctor if you observe: Fever of 101 or Higher Cleanse incision/area with: - - you have sutures and glue at incision sites- may shower, dab dry. Do not pick off glue. Allergies/Adverse Reactions: Allergies No Known Allergies Allergy (Verified 06/23/20 10:06) Medications to take at Discharge Acetaminophen [Tylenol] 650 mg PO PRN PRN 09/01/17 Ibuprofen [Motrin] 600 mg PO Q6H PRN #60 tab 09/02/17 Multivitamin [Once Daily] 1 ea PO DAILY 06/23/20 Lidocaine 2% Jelly [Xylocaine 2% Jelly] 5 ml OPERA.SITE 4X/DAY PRN PRN #1 tube 07/01/20 The following prescriptions were given: Lidocaine 2% Jelly [Xylocaine 2% Jelly] 5 ml OPERA.SITE 4X/DAY PRN PRN #1 tube PRN Reason: Pain 1-10 Or Fever Transmission Status: Received by [facility] Primary Care Physician: Augusto Luna MD [Primary Care Provider] - Test Results: Test results from this visit will be discussed in further detail at your follow-up appointment, if applicable. Please Follow Up With: Gely Gross MD When: 2 weeks post op
[2020-07-01] MEDS: HYDROcodone Bitartrate/Apap 5/325 Tablet PO (12:42)
== END 2020-07-01 13:38 | disposition home or self-care (01) ==
LOC: SDC 07:58 → AC 07:59
PROVIDERS: Anesthesiology; PCP Family Medicine; Referring Provider Obstetrics & Gynecology; Visit Provider Obstetrics & Gynecology
PROC: (CPT 56501; principal; 2020-07-01 09:15)
DX: D07.1 Carcinoma in situ of vulva (principal); Q82.8 Other specified congenital malformations of skin; Z20.828 Contact with and (suspected) exposure to other viral communicable diseases; Z87.891 Personal history of nicotine dependence
CPT/HCPCS: 00940; 56501; 36415; 81025; 85027; 87426; 88305; 88341; 88342; C9803; J7030; J2405

== ENCOUNTER 2020-09-10 14:50 | Outpatient (RCR) | payer OTHER, SELFPAY ==
[2020-07-01 08:22] VITALS: BMI 26.9
== END 2020-09-12 23:59 ==
LOC: EMPH 14:50
PROVIDERS: PCP Family Medicine; Visit Provider Family Medicine Geriatric Medicine
DX: Z03.818 Encounter for observation for suspected exposure to other biological agents ruled out (principal)
CPT/HCPCS: 87426

== ENCOUNTER 2020-11-25 12:39 | Outpatient (RCR) | payer OTHER, SELFPAY ==
[2020-07-01 08:22] VITALS: BMI 26.9
== END 2020-12-13 23:59 ==
LOC: EMPH 12:39
PROVIDERS: PCP Family Medicine; Visit Provider Family Medicine Geriatric Medicine
DX: Z03.818 Encounter for observation for suspected exposure to other biological agents ruled out (principal)
CPT/HCPCS: 87426

== ENCOUNTER 2021-06-21 13:35 | Outpatient (RCR) | payer OTHER, SELFPAY | END 2021-07-15 23:59 | LOC: EMPH 13:35 | PROVIDERS: PCP Family Medicine; Visit Provider Family Medicine Geriatric Medicine | DX: Z03.818 Encounter for observation for suspected exposure to other biological agents ruled out (principal) | CPT/HCPCS: 87635; U0003 ==

== ENCOUNTER 2021-08-01 08:15 | Outpatient (RCR) | payer OTHER, SELFPAY | END 2021-08-15 23:59 | LOC: EMPH 08:15 | PROVIDERS: PCP Family Medicine; Visit Provider Family Medicine Geriatric Medicine | DX: Z03.818 Encounter for observation for suspected exposure to other biological agents ruled out (principal) | CPT/HCPCS: 87426 ==

== ENCOUNTER 2021-09-12 13:56 | Outpatient (RCR) | payer SELFPAY | END 2021-09-12 23:59 | disposition home or self-care (01) | LOC: EMPH 13:56 | PROVIDERS: PCP Family Medicine; Visit Provider Family Medicine Geriatric Medicine | DX: Z03.818 Encounter for observation for suspected exposure to other biological agents ruled out (principal) | CPT/HCPCS: 87426 ==